=== PATIENT | male | born 1995 | race Caucasian/White ===

== ENCOUNTER 2016-11-28 16:48 | Emergency (ER) | payer MEDICAID ==
[2016-11-28 17:43] LABS: BASOPHIL % 0.7 % (0-2); PLATELET COUNT 248 x10^3mcL (130-400); RED CELL DISTRIBUTION WIDTH 12.5 % (11.5-14.5)
[2016-11-28 17:56] LABS: CALCIUM 9.6 mg/dL (8.5-10.1); CARBON DIOXIDE 24.6 mmol/L (21-32); CHLORIDE SERUM 101 mmol/L (98-107); CREATININE SERUM 1.3 mg/dL (0.7-1.3); GFR1 > 60 mL/min; GLUCOSE SERUM 155 mg/dL (74-106); POTASSIUM SERUM 3.6 mmol/L (3.5-5.1); SODIUM SERUM 137 mmol/L (136-145)
[2016-11-28 18:09] LABS: ALBUMIN 4.7 g/dL (3.4-5.0); ALKALINE PHOSPHATASE 96 U/L (46-116); ALT/SGPT 26 U/L (16-63); AST/SGOT 24 U/L (15-37)
[2016-11-28 18:17] LABS: TOTAL PROTEIN, SERUM 8.6 g/dL (6.4-8.2)
[2016-11-28 18:20] LABS: CK-MB 1.7 ng/mL (0-3.6); T3 TOTAL 1.22 ng/mL
[2016-11-28 18:43] LABS: C REACTIVE PROTEIN < 0.2 mg/dL (<=0.9)
[2016-11-28 18:46] LABS: ERYTHROCYTE SED RATE 12 mm/hr (0-15)
[2016-11-28 18:59] LABS: FREE T4 0.99 ng/dL (0.76-1.46); FREE THYROXINE INDEX 2.8 ug/dL (1.4-4.5); T4(THYROXINE) 8.2 ug/dL (4.7-13.3)
[2016-11-28 19:43] VITALS: BP 125/79
== END 2016-11-28 19:43 | disposition home or self-care (01) ==
LOC: ED 16:48
PROVIDERS: Specialist
DX: R10.33 Periumbilical pain (principal); R19.7 Diarrhea, unspecified; R11.10 Vomiting, unspecified
CPT/HCPCS: 36600; 83880; 84439; J1885; J2405; J3010; J7030; Q9967